=== PATIENT | male | born 1940 | race Two or more races ===

== ENCOUNTER 2024-01-15 16:39 | Observation (INO) | payer MEDICARE, OTHER ==
[~2024-01-15] VITALS: Ht 167.6 cm; Wt 104.0 kg
[2024-01-15 19:15] LABS: Basophils # (auto) 0 10 ^3/uL (0-0.2); Basophils % (auto) 0.2 % (0.0-2.0); Eosinophils # (auto) 0 10 ^3/uL (0-0.8); Eosinophils % (auto) 0.2 % (0.0-7.0); Hematocrit 48.2 % (41.0-53.0); Hemoglobin 15.8 g/dL (13.5-17.5); Lymphocytes % (auto) 6.7 % (10.0-50.0); Mean Corpuscular Hemoglobin 29.8 pg (28.0-32.0); Mean Corpuscular Hgb Conc. 32.9 g/dL (32.0-36.0); Mean Corpuscular Volume 90.5 fL (80.0-100.0); Monocytes % (auto) 6.4 % (0.0-12.0); Neutrophils # (auto) 13.1 10 ^3/uL (1.6-8.6); Neutrophils % (auto) 86.5 % (37.0-80.0); Red Blood Cells 5.32 10^6/uL (4.5-5.90); Red Cell Distribution Width 15.2 % (11.8-14.3); White Blood Cell 15.2 10^3/uL (4.4-10.8)
[2024-01-15 19:23] LABS: Chloride 105 mmol/L (98-107); Sodium 135 mmol/L (136-145)
[2024-01-15 19:24] LABS: Anion Gap 4 (5-15); Calcium 9.3 mg/dL (8.7-10.4); Carbon Dioxide 26 mmol/L (20-30)
[2024-01-15 19:29] LABS: Glucose 122 mg/dL (74-106)
[2024-01-15 19:44] LABS: BUN/Creatinine Ratio 14.2 (10.0-20.0); Blood Urea Nitrogen 15 mg/dL (9-23); Potassium 4.7 mmol/L (3.5-5.1)
[2024-01-15 21:05] LABS: Urine Bacteria NONE SEEN /hpf (None Seen); Urine Blood 1+ /uL (Negative); Urine Clarity CLOUDY (Clear); Urine Color Yellow (Yellow); Urine Mucus FEW (None Seen); Urine Protein, UAD 1+ (Negative); Urine Specific Gravity 1.015 (1.001-1.035); Urine Urobilinogen Normal (Negative); Urine WBC 1247 /hpf (0 - 3); Urine WBC Clumps PRESENT /hpf (None Seen)
[2024-01-16] MEDS ORDERED: ACETAMINOPHEN 325 MG TAB PO PRN (00:30)
[2024-01-16] MEDS ORDERED: ONDANSETRON HCL 4 MG/2 ML VIAL IV PRN (00:30)
[2024-01-16] MEDS: SODIUM CHLORIDE 0.9% 1,000 ML IV ONE ×2 (01:06)
[2024-01-16] MEDS: cefTRIAXone 1GM/50ML D5W 50 ML IV ONE (01:06)
[2024-01-16 01:15] VITALS: PULSE 66; RESP 14; O2SAT 92
[2024-01-16 03:13] VITALS: PULSE 60; RESP 16; O2SAT 96
[2024-01-16 05:00] VITALS: BP 118/61; PULSE 60; RESP 17; TEMP 98.7; O2SAT 98
[2024-01-16 05:08] LABS: Basophils # (auto) 0.1 10 ^3/uL (0-0.2); Basophils % (auto) 0.4 % (0.0-2.0); Eosinophils # (auto) 0.1 10 ^3/uL (0-0.8); Eosinophils % (auto) 0.5 % (0.0-7.0); Hematocrit 44.4 % (41.0-53.0); Hemoglobin 14.5 g/dL (13.5-17.5); Lymphocytes # (auto) 1.8 10 ^3/uL (0.4-5.4); Lymphocytes % (auto) 13.9 % (10.0-50.0); Mean Corpuscular Hemoglobin 29.6 pg (28.0-32.0); Mean Corpuscular Hgb Conc. 32.8 g/dL (32.0-36.0); Mean Corpuscular Volume 90.2 fL (80.0-100.0); Monocytes # (auto) 0.8 10 ^3/uL (0-1.3); Monocytes % (auto) 6.5 % (0.0-12.0); Neutrophils # (auto) 9.9 10 ^3/uL (1.6-8.6); Neutrophils % (auto) 78.7 % (37.0-80.0); Red Blood Cells 4.92 10^6/uL (4.5-5.90); Red Cell Distribution Width 14.8 % (11.8-14.3); White Blood Cell 12.6 10^3/uL (4.4-10.8)
[2024-01-16 05:19] LABS: Chloride 106 mmol/L (98-107); Potassium 3.5 mmol/L (3.5-5.1); Sodium 137 mmol/L (136-145)
[2024-01-16 05:20] LABS: Anion Gap 5 (5-15); Carbon Dioxide 26 mmol/L (20-30)
[2024-01-16 05:21] LABS: Calcium 9.1 mg/dL (8.7-10.4)
[2024-01-16 05:25] LABS: Glucose 103 mg/dL (74-106)
[2024-01-16 05:26] LABS: Blood Urea Nitrogen 13 mg/dL (9-23)
[2024-01-16 08:00] VITALS: PULSE 60; PULSE 63; RESP 20
[2024-01-16 08:25] VITALS: BP 137/69; PULSE 60; RESP 18; TEMP 97.9; O2SAT 97
[2024-01-16] MEDS ORDERED: LEVO500T91 PO (09:06)
[2024-01-16] MEDS: levoFLOXacin 500MG 100 ML IV SCH (10:07)
[2024-01-16] MEDS: ASPirin 81 mg TAB PO SCH (10:07)
[2024-01-16 13:17] VITALS: BP 131/61; PULSE 63; RESP 20; TEMP 98.1; O2SAT 92
== END 2024-01-16 15:20 | disposition home or self-care (01) ==
LOC: EDBD 16:39 → ER 16:39 → TELE 01-16 00:23 → TELE-WESTW 01-16 02:58
PROVIDERS: ADMIT Internal Medicine; ATTEND Internal Medicine
DX: N39.0 Urinary tract infection, site not specified (principal); R91.1 Solitary pulmonary nodule; I10 Essential (primary) hypertension; N12 Tubulo-interstitial nephritis, not specified as acute or chronic; R53.1 Weakness; R55 Syncope and collapse; Z91.199 Patient's noncompliance with other medical treatment and regimen due to unspecified reason; Z85.038 Personal history of other malignant neoplasm of large intestine
CPT/HCPCS: 36415; 74176; 80048; 81001; 85025; 87040; 87086; 93005; 96365; 96366; 96367; 97163; 99284; G0378; J0696; J1956

== ENCOUNTER 2024-04-13 10:57 | Emergency (ER) | payer OTHER ==
[~2024-04-13] VITALS: Ht 162.6 cm; Wt 107.6 kg
[~2024-04-13 10:57] MED LIST: LEVO500T91 PO
[2024-04-13 12:11] VITALS: BP 150/94; PULSE 75; RESP 16; TEMP 99.9; O2SAT 97
[2024-04-13] MEDS ORDERED: CEPH500C PO (13:39)
[2024-04-13] MEDS: NEOMYCIN-BACITRACIN-POLYM UNITDOSE PKG TOP OINT TOP ONE (13:59)
== END 2024-04-13 13:40 | disposition home or self-care (01) ==
LOC: ER 11:04
DX: S81.012A Laceration without foreign body, left knee, initial encounter (principal); M25.561 Pain in right knee; Z48.00 Encounter for change or removal of nonsurgical wound dressing; Z85.9 Personal history of malignant neoplasm, unspecified; Z79.899 Other long term (current) drug therapy; W18.39XA Other fall on same level, initial encounter; Y93.89 Activity, other specified; Y92.89 Other specified places as the place of occurrence of the external cause; Y99.8 Other external cause status
CPT/HCPCS: 73562